=== PATIENT | female | born 1995 | race Asian ===

== ENCOUNTER 2018-10-10 04:19 | Emergency (ER) | payer OTHER ==
[~2018-10-10] VITALS: Ht 167.6 cm; Wt 77.3 kg
[2018-10-10] MEDS ORDERED: PNV1TABL17 PO (04:23)
[2018-10-10 08:31] VITALS: BP 118/61
== END 2018-10-10 08:39 | disposition home or self-care (01) ==
LOC: EMS 04:21
DX: O99.512 Diseases of the respiratory system complicating pregnancy, second trimester (principal); R06.02 Shortness of breath; Z3A.19 19 weeks gestation of pregnancy; Z91.013 Allergy to seafood
CPT/HCPCS: 76805